=== PATIENT | female | born 2000 | race Hispanic/Latino ===

== ENCOUNTER 2022-11-20 15:02 | Emergency (ER) | payer OTHER | END 2022-11-20 16:00 | disposition home or self-care (01) | LOC: CSHERS 15:02 | DX: D18.00 Hemangioma unspecified site (principal) | CPT/HCPCS: 99282 ==

== ENCOUNTER 2023-03-13 11:09 | Emergency (ER) | payer OTHER ==
[2023-03-13 12:16] LABS: Bilirubin Neg (Negative); Blood, Urine 250 (Negative); Clarity Cloudy (Clear); Glucose, Urine (Dipstick) Normal (Negative); Ketone, Urine Negative (Negative); Leukocyte 500 (Negative); Nitrite Negative (Negative); Protein, Urine (Dipstick) 100 mg/dl (Neg-Trace); Urobilinogen Normal mg/dL (Less than 2)
[2023-03-13 12:22] LABS: Pregnancy Test - Urine (BHCG) Negative (Negative); Pregu Control Background? CLEAR/WHITE (CLR/WHITE); Pregu Control Bar Appear? YES (CONTROL BAR)
[2023-03-13 13:01] LABS: RBC/HPF 21-50 HPF (0-3); WBC/HPF Greater than 50 HPF (0-3)
[2023-03-13 13:02] LABS: Bacteria/HPF 4+ HPF (None Seen); Mucous/LPF 1+ LPF (<2+)
== END 2023-03-13 13:00 | disposition home or self-care (01) ==
LOC: CSHERS 11:09
DX: N39.0 Urinary tract infection, site not specified (principal)
CPT/HCPCS: 81003; 81015; 81025; 99283

== ENCOUNTER 2023-03-20 11:00 | Emergency (ER) | payer OTHER ==
[2023-03-20] MEDS ORDERED: Dexamethasone 10 MG/ML VIAL ONE (13:34)
== END 2023-03-20 13:30 | disposition home or self-care (01) ==
LOC: CSHERS 11:00
DX: J45.909 Unspecified asthma, uncomplicated (principal)
CPT/HCPCS: 71045; J1100